=== PATIENT | male | born 1955 | race Caucasian/White ===

== ENCOUNTER 2023-07-19 18:18 | Emergency (ER) | payer MEDICARE, SELFPAY ==
[2023-07-19 18:28] VITALS: BP 208/103; PULSE 73; RESP 18; TEMP 36.8; O2SAT 100; BMI 20.7
--- NOTE | 2023-07-19 18:42 | DI.RAD.S_ITS ---
PROCEDURE: XR HIP W PEL IF DONE LT 2V INDICATIONS: L hip pain after trauma TECHNIQUE: 3 views of the hip were acquired. COMPARISON: None. FINDINGS: Bones: Severe left hip degenerative changes, with flattening of the femoral head. There may be a deformity in the subcapital region. Right hip arthroplasty. Lumbosacral degenerative changes. Soft tissues: No suspicious calcifications. There are vascular calcifications. IMPRESSION: Severe left hip degenerative changes. Possible deformity is seen in the subcapital region, age indeterminate. If there is high concern for occult injury, consider repeat radiography or cross-sectional imaging. Dictated by: Daljit Henry M.D. on 07/19/2023 at 19:28 Approved by: Daljit Henry M.D. on 07/19/2023 at 19:29
--- NOTE | 2023-07-19 19:38 | DI.CT.S_ITS ---
PROCEDURE: CT PEL WO CON INDICATIONS: L hip pain TECHNIQUE: Noncontrast 3 mm axial sections acquired through the bony pelvis, with coronal and sagittal reformatting. COMPARISON: [facility], CR, XR HIP W PEL IF DONE LT 2V, 07/19/2023, 18:57. FINDINGS: Image quality: Excellent. Bones: Severe osteoarthritic changes of the left hip with [id number] articulation, subchondral sclerosis and cystic changes. Flattening of the left femoral head. Osteophytosis. No acute fracture or dislocation is seen. Degenerative changes of the visualized lower lumbar spine and pubic symphysis. Right hip arthroplasty is noted. Diffusely decreased osseous mineralization. Soft tissues: Atherosclerotic vascular calcifications. Prostatomegaly. Diverticulosis within the visualized colon without evidence of acute diverticulitis. IMPRESSION: Severe osteoarthritic changes of the left hip. No acute fracture or dislocation. Dictated by: Cricket Lee M.D. on 07/19/2023 at 20:39 Approved by: Cricket Lee M.D. on 07/19/2023 at 20:42
--- NOTE | 2023-07-19 19:44 | ED_ITS ---
HPI - Extremity Injury (Lower) General Chief Complaint: Extremity Injury, Lower Stated Complaint: L hip pain Time Seen by Provider: 07/19/23 18:41 Source: patient and EMS Mode of arrival: EMS History of Present Illness HPI Narrative: 68-year-old male. Known arthritis in his left hip. He has had his right hip replaced for arthritis. He states that he was at his normal state of health. He was sitting in his chair talking on the phone. Was in the chair for an extended period of time. Went to stand up and had sudden intense pain in his left hip. Does not radiate down his leg. Not in his lower back. No specific trauma. He did not fall. He did receive fentanyl by EMS prior to arrival. Initially he thought that this was not helping any of his symptoms but by the time I evaluated him he thought that he was feeling somewhat better. Related Data Allergies Allergy/AdvReac Type Severity Reaction Status Date / Time No Known Drug Allergies Allergy Verified 07/19/23 18:28 Review of Systems Constitutional Constitutional: Reports system reviewed and no additional complaints, except as documented Musculoskeletal Musculoskeletal: Reports system reviewed and no additional complaints, except as documented Integumentary/Breasts Skin/Breast: Reports system reviewed and no additional complaints, except as documented Neurologic Neurologic: Reports system reviewed and no additional complaints, except as documented Patient History Social History Smoking Status: Current every day smoker Smoking Status: Current every day smoker tobacco type: cigarettes alcohol intake frequency: 3 or more drinks per day Alcohol type: wine Substance Use Type: does not use Exam Initial Vital Signs Initial Vital Signs: Vital Signs Temperature 98.2 F 07/19/23 18:28 Pulse Rate 73 07/19/23 18:28 Respiratory Rate 18 07/19/23 18:28 Blood Pressure 208/103 H 07/19/23 18:28 Pulse Oximetry 100 07/19/23 18:28 Oxygen Delivery Method Room Air 07/19/23 18:28 Const General: cooperative and comfortable Resp Effort & Inspection: normal respiratory effort Cardio Rate: regular rate Extrem Other: No gross deformities Course Orders Ordered: ED Orders 07/19/23 18:42 XR hip w pel if done LT 2V Stat 07/19/23 19:38 CT pelvis wo con Stat Discontinued Medications Hydromorphone HCl (Hydromorphone 1 Mg Inj) 1 mg IV NOW ONE Stop: 07/19/23 18:43 Last Admin: 07/19/23 21:16 Dose: Not Given Documented By: KLS Vital Signs Vital signs: Vital Signs - 8 hr 07/19/23 18:28 Temperature 98.2 F Pulse Rate 73 Respiratory Rate 18 Blood Pressure 208/103 H Pulse Oximetry 100 Oxygen Delivery Method Room Air MDM - Extremity Injury (Lower) Imaging Data Extremity x-ray #1: Radiologist's Impression: PROCEDURE: XR HIP W PEL IF DONE LT 2V INDICATIONS: L hip pain after trauma TECHNIQUE: 3 views of the hip were acquired. COMPARISON: None. FINDINGS: Bones: Severe left hip degenerative changes, with flattening of the femoral head. There may be a deformity in the subcapital region. Right hip arthroplasty. Lumbosacral degenerative changes. Soft tissues: No suspicious calcifications. There are vascular calcifications. IMPRESSION: Severe left hip degenerative changes. Possible deformity is seen in the subcapital region, age indeterminate. If there is high concern for occult injury, consider repeat radiography or cross-sectional imaging. CT pelvis: Radiologist's Impression: PROCEDURE: CT PEL WO CON INDICATIONS: L hip pain TECHNIQUE: Noncontrast 3 mm axial sections acquired through the bony pelvis, with coronal and sagittal reformatting. COMPARISON: [facility], , XR HIP W PEL IF DONE LT 2V, 07/19/2023, 18:57. FINDINGS: Image quality: Excellent. Bones: Severe osteoarthritic changes of the left hip with [id number] articulation, subchondral sclerosis and cystic changes. Flattening of the left femoral head. Osteophytosis. No acute fracture or dislocation is seen. Degenerative changes of the visualized lower lumbar spine and pubic symphysis. Right hip arthroplasty is noted. Diffusely decreased osseous mineralization. Soft tissues: Atherosclerotic vascular calcifications. Prostatomegaly. Diverticulosis within the visualized colon without evidence of acute diverticulitis. IMPRESSION: Severe osteoarthritic changes of the left hip. No acute fracture or dislocation. [facility] Narrative Medical decision making narrative: Patient was able to stand. Initial x-ray shows no overt fractures but there was some compression of the femoral head. Unsure whether not this is new or old. CT scan does not show any acute fractures. Discussed this with the patient. Will send patient home with instructions to continue to take his Tylenol and Advil. Advised that he talk with his primary doctor/orthopedic surgeon about further evaluation and treatment. He was given return precautions. Discharge Plan Departure Patient Disposition: Home Clinical Impression: Hip arthritis Instructions: DI for Arthritis Activity Restrictions/Additional Instructions: The x-rays and CT scan did not show any signs of fractures. You can continue to take Aleve and add Tylenol to this if needed. Contact your primary care doctor for a follow-up. Return to the emergency department for new symptoms. Stand Alone Forms: Patient Portal/API
== END 2023-07-19 21:18 | disposition home or self-care (01) ==
PROVIDERS: Emergency Provider Emergency Medicine
DX: M16.12 Unilateral primary osteoarthritis, left hip (principal)
CPT/HCPCS: 72192; 73502; 99284

== ENCOUNTER 2025-03-04 16:13 | Observation (INO) | payer MEDICARE, SELFPAY ==
[2025-03-04] VITALS (21 sets, daily range): BP systolic 95–120; BP diastolic 52–59; PULSE 71–80; RESP 14–20; O2SAT 96–100; BMI 21.2
--- NOTE | 2025-03-04 16:32 | EKG_ITS ---
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
--- NOTE | 2025-03-04 16:51 | DI.CT.S_ITS ---
PROCEDURE: CT ANGIO ABD/PEL GI BLEED INDICATIONS: gi bleed TECHNIQUE: After the administration of intravenous contrast, 2.5 mm sections acquired from the diaphragm to the iliac crests. 10 mm maximum intensity projection (MIP) coronal and sagittal reformats were then performed. For radiation dose reduction, the following was used: automated exposure control. COMPARISON: None. FINDINGS: Image quality: Diagnostic. Lower chest: Small bilateral pleural effusions and mild bilateral basilar compressive atelectasis ABDOMEN: Liver: No solid mass. Gallbladder: No radiopaque gallstones or wall thickening. Biliary ducts: No biliary dilation. Pancreas: Extensive calcifications as well as severe volume loss, due to chronic pancreatitis. Spleen: Size is within normal limits. Adrenal Glands: No adrenal nodules. Kidneys and Ureters: No hydronephrosis. No solid mass. No complex renal cystic lesion which requires follow up. Stomach and Bowel: There is no bowel dilatation. There is moderate wall thickening of the colon, especially in the right colon, with significant mucosal enhancement. No definite areas of abnormal contrast accumulation Peritoneum: No abnormal intraperitoneal fluid. No free air. Ventral Wall: No hernia. Abdominal Nodes: No retroperitoneal or mesenteric adenopathy by size criteria. Vessels: Aorta, as above. Normal IVC. PELVIS: Pelvic Organs: Unremarkable. Bladder: Unremarkable. Pelvic Nodes: No enlarged lymph nodes. Miscellaneous: No inguinal hernias are seen. Bones: Severe left hip osteoarthritis, with large complex joint effusion. IMPRESSION: 1. Findings most suggestive of pancolitis, involving especially the right colon, most likely of inflammatory/infectious etiology. No signs of complications. 2. The intense mucosal enhancement limits evaluation for small amount of intraluminal contrast accumulation. No definite signs of active GI bleeding. Especially in this context, better assessment can be performed with GI bleeding scintigraphy. Dictated by: Jori Schmitt M.D. on 03/04/2025 at 17:30 Approved by: Jori Schmitt M.D. on 03/04/2025 at 17:37
[2025-03-04] MEDS: ONDANSETRON 4 MG/2 ML INJ IV (16:53)
[2025-03-04 16:55] LABS: Add Manual Diff / Slide Review NO; Hematocrit 31.9 % (41-53); Hemoglobin 10.7 g/dL (13.5-17.5); Lymphocytes Absolute Auto 2200 /uL (1100-4500); Mean Corpuscular HGB Conc 33.5 % (30-36); Mean Corpuscular Hemoglobin 32.6 PG (26-34); Mean Corpuscular Volume 97.3 fL (80-100); Platelet Count 485 X10^3/uL (150-400)
[2025-03-04 17:17] LABS: Alanine Aminotransferase 17 IU/L (<50); Albumin 2.3 g/dL (3.5-5.0); Albumin Globulin Ratio 0.8 (1.0-2.8); Alkaline Phosphatase 71 U/L (38-126); Blood Urea Nitrogen 14 mg/dL (9-20); Calcium 7.7 mg/dL (8.4-10.2); Carbon Dioxide 29 mmol/L (22-32); Chloride 102 mmol/L (98-107); Estimated Glomerular Filt Rate > 60 mL/min (>60); Globulin 3.0 g/dL (1.7-4.1); Glucose 117 mg/dL (70-99); HEMOLYSIS 18 (0-50); Potassium 4.1 mmol/L (3.4-5.1); Sodium 133 mmol/L (137-145); Total Protein 5.3 g/dL (6.3-8.2)
[2025-03-04 17:19] LABS: INR 2.4 (0.9-1.3); Prothrombin Time 26.8 SECONDS (9.4-12.5)
[2025-03-04 17:21] LABS: PTT Partial Thromboplastin Tim 34 SECONDS (25.1-36.5)
[2025-03-04] MEDS: PIPERACILLIN/TAZO 4.5 GM in SODIUM CHLORIDE 0.9% 100 ML IV (18:15)
[2025-03-04] MEDS: LACTATED RINGERS 1,000 ML 1000 ML IV (18:15)
[2025-03-04] MEDS: PANTOPRAZOLE 40 MG VIAL IV (18:15)
--- NOTE | 2025-03-04 18:31 | ED.GIBLEED ---
HPI - GI Bleed General Chief complaint: GI Bleed Stated complaint: blood in stool , nausea Time Seen by Provider: 03/04/25 16:51 Source: patient and family Mode of arrival: Ambulatory History of Present Illness HPI Narrative: 69-year-old male who was recently admitted and discharged over at [facility] for a GI bleed. He was discharged yesterday but today had 2 episodes of fairly large bright red GI bleeds. Patient is on Eliquis for atrial fibrillation and is pending a bypass surgery. Patient was restarted on his Eliquis 3 days ago and has taken his morning dose today. He denies any pain nausea or any other symptoms at this time. He did require 1 unit of packed RBCs while he was admitted over at [facility]. Related Data Home Medications ?Medication ?Instructions ?Recorded ?Confirmed losartan 50 mg tablet 50 mg PO DAILY 01/13/25 01/13/25 mupirocin topical 01/13/25 01/13/25 naproxen sodium [Aleve] PO 01/13/25 01/13/25 triamcinolone acetonide 0.1 % applic topical BID PRN 01/13/25 01/13/25 topical cream Previous Rx's ?Medication ?Instructions ?Recorded prednisone 20 mg tablet 20 mg PO DAILY #5 tabs 01/13/25 Allergies Allergy/AdvReac Type Severity Reaction Status Date / Time No Known Drug Allergies Allergy Verified 01/13/25 09:20 Review of Systems Review of Systems ROS Unobtainable: All systems reviewed & are unremarkable except as noted in HPI and below Patient History Social History Smoking Status: Former smoker alcohol intake: current tobacco type: cigarettes alcohol intake frequency: 3 or more drinks per day Alcohol type: wine Exam Narrative Exam Narrative: General: Patient appears to be in no acute distress, acting appropriately , pale looking Head: normocephalic, atraumatic, HEENT: Pupils equal round reactive, eyes tracking well, neck supple, no JVD Heart: regular rate and rhythm, no murmurs, rubs, or gallops heard Lungs: clear to auscultation, no adventitious sounds Abdomen: soft , nontender, nondistended, positive bowel sounds Neurological: no focal neurological signs, moving all extremities well, alert and oriented x3, Psych: good judgment ,good insight, mood is normal. Initial Vital Signs Initial Vital Signs: Vital Signs Pulse Rate 75 03/04/25 17:39 Respiratory Rate 16 03/04/25 17:39 Pulse Oximetry 96 03/04/25 17:39 Course Orders Ordered: ED Orders 03/05/25 01:20 Hemoglobin and Hematocrit Stat Sodium Chloride (Normal Saline 0.9%) 1,000 mls @ 125 mls/hr IV CONT JOVI Last Admin: 03/05/25 02:46 Dose: 125 mls/hr Documented By: ODDIE Ondansetron HCl (Ondansetron 4 Mg/2 Ml Inj) 4 mg IV NOW PRN PRN Reason: Nausea And Vomiting Last Admin: 03/04/25 16:53 Dose: 4 mg Documented By: ISELA Ondansetron HCl (Ondansetron 4 Mg Odt) 4 mg PO NOW PRN PRN Reason: Nausea And Vomiting Ondansetron HCl (Ondansetron 4 Mg/2 Ml Inj) 4 mg IV Q4HR PRN PRN Reason: Nausea And Vomiting Discontinued Medications Piperacillin Sod/Tazobactam (Sod 4.5 gm/ Sodium Chloride) 100 mls @ 200 mls/hr IV NOW ONE Stop: 03/04/25 17:52 Last Infusion: 03/04/25 19:13 Dose: Infused Documented By: Admin: 03/04/25 18:15 Dose: 200 mls/hr Documented By: ISELA Lactated Ringer's (Lactated Ringers) 1,000 mls @ 1,000 mls/hr IV BOLUS ONE Stop: 03/04/25 18:57 Last Infusion: 03/04/25 21:02 Dose: Infused Documented By: Admin: 03/04/25 18:15 Dose: 1,000 mls/hr Documented By: ISELA Lactated Ringer's (Lactated Ringers) 1,000 mls @ 125 mls/hr IV CONT JOVI Last Infusion: 03/05/25 02:47 Dose: Infused Documented By: Infusion: 03/05/25 02:46 Dose: 0 mls/hr Documented By: Admin: 03/05/25 02:28 Dose: 125 mls/hr Documented By: DODIE Pantoprazole Sodium (Pantoprazole 40 Mg Vial) 40 mg IV NOW ONE Stop: 03/04/25 17:59 Last Admin: 03/04/25 18:15 Dose: 40 mg Documented By: ISELA Polyethylene Glycol/Electrolytes ([id number]/Sod Sulf,Bicarb,Cl/Kcl 4,000 Ml Solution) 2,000 ml PO NOW ONE Stop: 03/05/25 02:40 Last Admin: 03/05/25 03:04 Dose: 2,000 ml Documented By: NATACHA Reevaluation(s) Reevaluation #1: Upon re-evaluation, patient had 4 bowel movements that were non bloody here in the ER. Patient remains hemodynamically stable. Consultations Consultation #1: Dr warren general surgery graciously will take the patient for a colonoscopy in am, boarding orders placed and will start prep Vital Signs Vital signs: Vital Signs - 8 hr 03/04/25 23:30 03/04/25 23:30 03/05/25 00:00 Pulse Rate 72 81 Respiratory Rate 15 15 Blood Pressure 98/52 L Pulse Oximetry 97 99 Oxygen Delivery Method Room Air Room Air 03/05/25 00:30 03/05/25 00:30 03/05/25 01:00 Pulse Rate 74 Respiratory Rate 16 Blood Pressure 104/56 L 98/57 L Pulse Oximetry 96 Oxygen Delivery Method Room Air 03/05/25 01:00 03/05/25 01:30 03/05/25 01:30 Pulse Rate 73 77 Respiratory Rate 13 16 Blood Pressure 112/56 L Pulse Oximetry 96 97 Oxygen Delivery Method Room Air 03/05/25 02:00 03/05/25 02:00 03/05/25 02:30 Pulse Rate 77 Respiratory Rate 23 Blood Pressure 112/58 L 119/59 L Pulse Oximetry 96 Oxygen Delivery Method 03/05/25 02:30 Pulse Rate 78 Respiratory Rate 16 Blood Pressure Pulse Oximetry 99 Oxygen Delivery Method MDM - GI Bleed Lab Data 03/05/25 01:20 03/04/25 16:44 Labs: Lab Results 03/04/25 03/04/25 03/05/25 Range/Units 16:44 18:15 01:20 WBC 17.7 H (4.5-11.0) X10^3/uL RBC 3.28 L (4.5-5.9) X10^6/uL Hgb 10.7 L 8.8 L (13.5-17.5) g/dL Hct 31.9 L 26.1 L (41-53) % MCV 97.3 (80-100) fL MCH 32.6 (26-34) PG MCHC 33.5 (30-36) % RDW 13.3 (11.6-14.8) % Plt Count 485 H (150-400) X10^3/uL Neut % (Auto) 70.8 (50-75) % Lymph % (Auto) 12.6 L (25-40) % [place] % (Auto) 12.3 (3-14) % Eos % (Auto) 3.4 (2-4) % Baso % (Auto) 0.9 (0-2) % Neut # (Auto) 41317 H (5299-7671) /uL Lymph # (Auto) 2200 (9329-9702) /uL [place] # (Auto) 2200 H (0-900) /uL Eos # (Auto) 600 H (0-450) /uL Baso # (Auto) 200 H (0-100) /uL PT 26.8 H (9.4-12.5) SECONDS INR 2.4 H (0.9-1.3) APTT 34 (25.1-36.5) SECONDS Sodium 133 L (137-145) mmol/L Potassium 4.1 (3.4-5.1) mmol/L Chloride 102 (98-107) mmol/L Carbon Dioxide 29 (22-32) mmol/L BUN 14 (9-20) mg/dL Creatinine 1.13 (0.66-1.25) mg/dL Estimated GFR > 60 (>60) mL/min BUN/Creatinine Ratio 12.4 (6-22) Glucose 117 H (70-99) mg/dL Lactate 1.5 (0.7-2.1) mmol/L Calcium 7.7 L (8.4-10.2) mg/dL Total Bilirubin 0.3 (0.2-1.3) mg/dL AST 29 (17-59) IU/L ALT 17 (<50) IU/L Alkaline Phosphatase 71 (38-126) U/L Total Protein 5.3 L (6.3-8.2) g/dL Albumin 2.3 L (3.5-5.0) g/dL Globulin 3.0 (1.7-4.1) g/dL Albumin/Globulin Ratio 0.8 L (1.0-2.8) Blood Type O Negative Antibody Screen Negative Urine Dip Bedside Urine Glucose Negative Bedside Urine Bilirubin - Negative Bedside Urine Ketone - Negative Urine Specific [place] 1.015 Bedside Urine Occult Blood - Negative Bedside Urine pH 5.5 Bedside Urine Protein +/- 15 Bedside Urine Urobilinogen - Negative Bedside Urine Nitrite - Negative Bedside Urine Leukocytes - Negative Esterase MDM Narrative Medical decision making narrative: 69-year-old male who has recently admitted for several days for a GI bleed overhead [facility]. Patient is also pending a coronary artery bypass graft surgery that was pending due to this GI bleed. The GI bleeds etiology is most likely the patient's blood thinner Eliquis which he is on for atrial fibrillation. Initially the patient's blood thinner was suspended but restarted before he was discharged. Day after discharge. Patient had large bright red blood per rectum. Patient has been stable here in the ER. General surgery was consulted and will take the patient for a colonoscopy in a.m.. Discharge Plan Departure Patient Disposition: Admitted as Observation Clinical Impression: Lower gastrointestinal hemorrhage Admit Date/Time: 03/05/25 02:30 Admit Provider: Leopoldo Warren
[2025-03-04 18:48] LABS: Lactate (Lactic Acid) 1.5 mmol/L (0.7-2.1)
[2025-03-05] VITALS (30 sets, daily range): BP systolic 98–135; BP diastolic 54–74; PULSE 73–93; RESP 13–26; TEMP 36.2–36.4; O2SAT 96–198; BMI 21.2
--- NOTE | 2025-03-05 | PATH_ITS ---
[facility] Accession Number: [id number] No. of containers..01 Tissue . 01 Material submitted: . colon - COLON, RANDOM . 01 Clinical history: . FOR COLITIS . 01 Diagnosis: COLON, RANDOM BIOPSY: Colonic mucosa with architectural distortion and mild to moderate active inflammation, see comment. Negative for dysplasia and malignancy. MRV 03/14/2025 1546 Local . 01 Comment: The morphologic characteristics seen would be compatible with inflammatory bowel disease in the appropriate clinical context. Additional differential diagnoses include infection and drug-related injury (such as NSAIDs and ARBs, among others). Acute ischemic changes are not seen but should remain in the differential diagnosis in the appropriate clinical scenario. . 01 Electronically signed: . Danay Adam DO, Pathologist NPI- [id number] . 01 Gross description: . Received one formalin-filled container, labeled with the patient's name, labeled random colon are multiple fragments of parr, soft tissue which range in size from less than 0.1 to 0.4 x 0.3 x 0.2 cm. The specimen is totally submitted in one cassette. ([facility]:[id number]) /MRV 03/13/2025 0328 Local . 01 Pathologist provided ICD-10: K92.9 . 01 CPT . 075387 Specimen Comment: A courtesy copy of this report has been sent to [facility] Pathology Performed at: [address] [address], [place], [place] [id number] MD Ga Huynh MD Phone: [phone]
[2025-03-05 01:46] LABS: Hematocrit 26.1 % (41-53); Hemoglobin 8.8 g/dL (13.5-17.5)
[2025-03-05] MEDS: LACTATED RINGERS 1,000 ML 125 ML IV (02:28)
[2025-03-05] MEDS: SODIUM CHLORIDE 0.9% 1,000 ML 125 ML IV ×3 (02:46→22:06)
[2025-03-05] MEDS: PEG3350/SOD SULF,BICARB,CL/KCL 4,000 ML SOLUTION 2000 ML PO (03:04)
--- NOTE | 2025-03-05 07:22 | P.HP_ITS ---
History of Present Illness History of Present Illness Date Patient Seen: 03/05/25 Time Patient Seen: 07:22 Chief complaint: blood in stool , nausea Narrative: 69yo M with BRBPR. Recent admission at [facility] in [place]. EGD done per patient, normal. CTA demonstrated colitis. Had 2 u PRBCs, hgb drifted to 8.9. Hemodynamically stable. Takes Eliquis for afib. Last dose on Wednesday. He completed Golytely last night. Will reverse with Kcentra. Last colonoscopy done 5 years ago. He describes a large polyp removed and tattooed. He was told to return in 1 year, but he hasn't had that f/u scope done. [facility] Social History Smoking Status: Former smoker alcohol intake: current Meds Home Medications and Allergies Home Medications ?Medication ?Instructions ?Recorded ?Confirmed ?Type losartan 50 mg tablet 50 mg PO DAILY 01/13/25/08/15 History mupirocin topical 01/13/25 01/13/25 Hi story naproxen sodium [Aleve] PO 01/13/25 01/13/25 History prednisone 20 mg tablet 20 mg PO DAILY #5 tabs 01/1301/13/25 Rx triamcinolone acetonide 0.1 % applic topical BID PRN 0 01/13/25 01/13/25 History topical cream Allergies Allergy/AdvReac Type Severity Reaction Status Date / Time No Known Drug Allergies Allergy Verified 01/13/25 09:20 Exam Vital Signs (past 8 hours): - 03/04/25 23:30 03/04/25 23:30 03/05/25 00:00 Pulse Rate 72 81 Respiratory Rate 15 15 Blood Pressure 98/52 L Pulse Oximetry 97 99 Oxygen Delivery Method Room Air Room Air 03/05/25 00:30 03/05/25 00:30 03/05/25 01:00 Pulse Rate 74 Respiratory Rate 16 Blood Pressure 104/56 L 98/57 L Pulse Oximetry 96 Oxygen Delivery Method Room Air 03/05/25 01:00 03/05/25 01:30 03/05/25 01:30 Pulse Rate 73 77 Respiratory Rate 13 16 Blood Pressure 112/56 L Pulse Oximetry 96 97 Oxygen Delivery Method Room Air 03/05/25 02:00 03/05/25 02:00 03/05/25 02:30 Pulse Rate 77 Respiratory Rate 23 Blood Pressure 112/58 L 119/59 L Pulse Oximetry 96 Oxygen Delivery Method 03/05/25 02:30 03/05/25 03:00 03/05/25 03:00 Pulse Rate 78 82 Respiratory Rate 16 17 Blood Pressure 113/62 Pulse Oximetry 99 98 Oxygen Delivery Method Oxygen Delivery Method Room Air Narrative Exam Narrative: Const General: healthy appearing, comfortable and no acute distress Orientation: alert and oriented x3 HENMT Ears: hearing grossly normal bilaterally Eyes Visual [place]: normal visual duvall by confrontation Conjunctivae: conjunctivae normal Sclera: sclerae normal EOM: EOM intact bilaterally Resp Effort & Inspection: normal respiratory effort and able to speak in complete sentences Cardio Rate: regular rate GI Palpation: soft (NT) Extrem General: no pedal edema and no calf tenderness Objective Labs 03/05/25 01:20 03/04/25 16:44 Labs: Laboratory Results - last 24 hr 03/04/25 03/04/25 03/05/25 16:44 18:15 01:20 WBC 17.7 H RBC 3.28 L Hgb 10.7 L 8.8 L Hct 31.9 L 26.1 L MCV 97.3 MCH 32.6 MCHC 33.5 RDW 13.3 Plt Count 485 H Neut % (Auto) 70.8 Lymph % (Auto) 12.6 L [place] % (Auto) 12.3 Eos % (Auto) 3.4 Baso % (Auto) 0.9 Neut # (Auto) 97351 H Lymph # (Auto) 2200 [place] # (Auto) 2200 H Eos # (Auto) 600 H Baso # (Auto) 200 H PT 26.8 H INR 2.4 H APTT 34 Sodium 133 L Potassium 4.1 Chloride 102 Carbon Dioxide 29 BUN 14 Creatinine 1.13 Estimated GFR > 60 BUN/Creatinine Ratio 12.4 Glucose 117 H Lactate 1.5 Calcium 7.7 L Total Bilirubin 0.3 AST 29 ALT 17 Alkaline Phosphatase 71 Total Protein 5.3 L Albumin 2.3 L Globulin 3.0 Albumin/Globulin Ratio 0.8 L Blood Type O Negative Antibody Screen Negative Assessment & Plan Assessment and plan (1) Lower gastrointestinal hemorrhage: Status: Acute Plan Plan admit to surgery Reverse eliquis with Kcentra Colonoscopy today, possible biopsy. The risks, benefits and options regarding the procedure were explained to the patient in detail. Risk discussion included but not limited to: bleeding, perforation, unable to reach cecum, missed lesion. The patient was encouraged to ask questions and they were answered to their satisfaction. The patient understands and is agreeable to proceed. Time-Based Coding :: [TOTAL MINUTES] spent with patient and on the chart (including review of chart, obtaining history, exam, reviewing outside data, placing orders, documenting exam and treatment plan, and counseling patient) on [DATE]. Quality VTE Deep Vein Thrombosis/Pulmonary Embolism Present on Admission: No IH PROFEE Patient Services Representative Document charge(s): Yes Charge Codes Initial inpatient/observation care: [id number]
[2025-03-05] MEDS: PROTHROMBIN CPLX(PCC)4FACT 2,000 UNIT in ISOOSMOTIC VEHICLE 0 ML 483.35 UNIT IV (07:59)
[2025-03-05 08:23] LABS: Hematocrit 28.3 % (41-53); Hemoglobin 9.4 g/dL (13.5-17.5)
--- NOTE | 2025-03-05 12:50 | CM.DANOTE ---
DCP Assessment Note: Pt is a 69yo male, resident of [place], is admitted for a GI bleed. Pt lives in a house with his partner, Kimberly. Pt's Primary Care Provider is Sumanth Loomis PA-C (Will establish care on 03/09) and insurance is [employer] Advantage. Reviewed chart and discussed with multidisciplinary team pt's medical status and initial discharge needs. Per ED Provider, pt to be admitted with General Surgery for colonoscopy scheduled for 1700 today. Per EMR, pt was admitted at [facility] from 02/07/25-02/10/25 for similar symptoms. DCP met w/patient at bedside; introduced self and role. Present in the room is pt's partner, Kimberly. Patient was found in bed, alert and oriented, cooperative with assessment. Pt confirmed living situation and good support in partner. Pt expressed preference in discharge home when cleared, preparing to discharge and stay in a motel overnight in [place] before returning to [place]. Pt has ano previous history of home health and SNF Rehab. Patient expressed a preference for a referral to [facility] in [place] with Dr. Theron Olivas MD; would request all clinicals to be sent to them but no official referral has been made by a Provider. . Plan: Anticipating discharge home with partner when medically cleared, pt partner to transport. CM team will follow closely for coordination of discharge plans. ROBYN Jimenez Discharge Planning/Care Management CM Discharge Assessment Start: 03/05/25 03:29 Freq: Status: Active Protocol: Document 03/05/25 12:01 MW (Rec: 03/05/25 12:48 MW [id number]) Discharge Planning Assessment Assigned Discharge VALE Wolf Histology Tech Provider Sumanth Loomis PA-C (Primary Care at [place]) Insurance [employer] Insurance Comment [employer] DPOA/Assigned Kimberly Boyce, Partner Designee Name Contact Information [phone] Advance Directives? Yes Advance Directives Yes on File History Provided By Patient Prior Living House Arrangements Type of Drives own vehicle transporation used prior to admit Independent with ADL Yes 's Is patient alert and Yes oriented? Caregiver for No Another Discharge Plan Home Transportation Partner, Kimberly Arrangement Review Status In Process Please Provide Date 03/05/25 Initial DC Assessment Was Performed Next Review Type Continued Stay Review
[2025-03-05] MEDS: LACTATED RINGERS 1,000 ML 42 ML IV (16:38)
--- NOTE | 2025-03-05 16:56 | PM.OP.COLON ---
Operative Date/Time/Diagnoses Date of procedure: 03/05/25 Time of procedure: 17:29 Pre-op diagnosis: Rectal bleeding Post-op diagnosis: other (Ulcerative colitis) Procedure & Clinicians Study performed: Colonoscopy with biopsy Same procedure(s) as scheduled: Yes Indications: 69yo M with rectal bleeding, EGD normal two days ago in [place]. Surgeon: Leopoldo Gillespie Anesthesia Type: MAC +/- Procedure Notes SCOAP/Timeout: Performed Procedure in detail: Colonoscopy Patient placed in left lateral recumbent position. Time out was performed. Procedural sedation was administered by anesthesia. Examination began with a thorough inspection of the perianal area. There was no evidence of fissures, fistulae, external hemorrhoids or cutaneous malignancy. The colonoscope was then placed into the rectum and the lumen was insufflated with carbon dioxide. The scope was carefully advanced forward. Ultimately the cecum was intubated and confirmed by identification of the ileocecal valve, the appendiceal orifice and the confluence of the taenia. The scope was then slowly withdrawn examining the colon thoroughly in all directions. In the rectum, retroflexion of the scope was performed for inspection of the distal rectum and anal canal. ?Significant colonoscopy findings: ?1. Quality of the preparation-good, [place] 2-3, improved with irrigation/suction ?2. Ulcerative colitis: severe pancolitis, edema, mucosal inflammation, ulcerations, mucous secretion, multiple random biposies taken (his states his mother had Crohn's disease) 3. No obvious polyp or mass Scope withdrawal time: 8 Findings: colitis (Ulcerative colitis) Specimen(s): other (multiple random biopsies) Complications: none Impression: Ulcerative colitis Begin treatment with mesalamine, sulfasalazine Observe overnight for symptom monitoring, begin treatment Post-procedure Recommendations: Will call with biopsy results Plan for aftercare: PACU then chandler Follow up: as needed Disposition: PACU
--- NOTE | 2025-03-05 19:00 | PC.NURSE ---
Late entry: Pt arrived to the floor at 12:42 today with 20 G IV in his L AC SL. Pt is full code, VSS, afebrile. The pt was oriented to the room and how to use the call light appropriately.
[2025-03-05] MEDS: ATORVASTATIN 20 MG TABLET 40 MG PO (22:05)
[2025-03-05] MEDS: MESALAMINE 400 MG CAP.DRTAB. 800 MG PO (22:05)
[2025-03-06 01:00] VITALS: BP 112/57; PULSE 86; RESP 18; TEMP 36.6; O2SAT 97
[2025-03-06] MEDS: SODIUM CHLORIDE 0.9% 1,000 ML 125 ML IV (05:54)
[2025-03-06] MEDS: METOPROLOL IR 50 MG TABLET PO (08:13)
[2025-03-06] MEDS: FUROSEMIDE 40 MG TABLET PO (08:13)
[2025-03-06] MEDS: LACTOBACILLUS ACIDOPHILUS TABLET 1 EACH PO (08:13)
[2025-03-06] MEDS: MESALAMINE 400 MG CAP.DRTAB. 800 MG PO ×2 (08:13→15:15)
[2025-03-06] MEDS: HYDROCORTISONE 100 MG/60 ML ENEMA PR (09:28)
--- NOTE | 2025-03-06 14:55 | P.DS_ITS ---
History of Present Illness History of Present Illness Date Patient Seen: 03/06/25 Time Patient Seen: 14:55 Chief complaint: blood in stool , nausea Narrative: 69yo M with BRBPR. Recent admission at [facility] in [place]. EGD done per patient, normal. CTA demonstrated colitis. Had 2 u PRBCs, hgb drifted to 8.9. Hemodynamically stable. Takes Eliquis for afib. Last dose on Wednesday. He completed Golytely last night. Will reverse with Kcentra. Last colonoscopy done 5 years ago. He describes a large polyp removed and tattooed. He was told to return in 1 year, but he hasn't had that f/u scope done. Discharge Providers Provider Date of admission: 03/05/25 02:30 Discharge Date: 03/06/25 Discharge provider: Leopoldo Gillespie MD Summary Hospital Course Discharge Diagnosis: Ulcerative colitis Hospital Course: Patient admitted with LGI bleeding. His eliquis was held and reversed to facilitate urgent colonoscopy. Colonoscopy performed last evening demonstrating clinical ulcerative colitis. Biopsies taken for confirmation. Treatment initiated. This morning, he was tolerating regular diet and was ready for discharge. He already has an appointment with his insurance auditor for ongoing management of ulcerative colitis. Status at Discharge Cognitive/behavioral status at discharge: oriented Functional status at discharge: independent ambulation Overall status at discharge: patient is back to baseline Time Spent with Patient Time spent: Greater than 30 minutes Exam Vital Signs (past 8 hours): Oxygen Delivery Method Room Air Oxygen Flow Rate 0 Narrative Exam Narrative: Const General: healthy appearing, comfortable and no acute distress Orientation: alert and oriented x3 HENMT Ears: hearing grossly normal bilaterally Eyes Visual Duvall: normal visual duvall by confrontation Conjunctivae: conjunctivae normal Sclera: sclerae normal EOM: EOM intact bilaterally Resp Effort & Inspection: normal respiratory effort and able to speak in complete sentences Cardio Rate: irregular rate GI Palpation: soft (NT) Extrem General: no pedal edema and no calf tenderness Objective Labs 03/05/25 08:16 03/04/25 16:44 [facility] Social History Smoking Status: Former smoker alcohol intake: current Discharge Assessment & Plan Assessment and Plan Assessment: Lower GI bleeding due to ulcerative colitis Plan of Treatment: Mesalamine therapy initiated He has appointment with GI next week for ongoing management Discharge Plan Discharge Plan Patient Disposition: Home Provider Discharge Comment: I prescribed the ulcerative colitis medication (mesalamine) to your pharmacy. Continue to take this for now and follow up with your insurance auditor. Great job already having an appointment. I would not start any anticoagulant medication for now as your colon will bleed. Discuss with your doctors as necessary to plan around your colitis. Discharge orders & Medications Prescriptions: New metoprolol tartrate 50 mg Tablet 50 mg PO DAILY Qty: 30 0RF mesalamine 400 mg Capsule (With Del Rel Tablets) 800 mg PO TID Qty: 90 0RF atorvastatin 20 mg Tablet 40 mg PO BEDTIME Qty: 30 0RF Continued furosemide 40 mg tablet 40 mg PO DAILY atorvastatin 40 mg tablet 40 mg PO BEDTIME metoprolol succinate 50 mg tablet extended release 24 hr 50 mg PO DAILY Discontinued metronidazole 500 mg tablet 500 mg PO TID ciprofloxacin HCl 500 mg tablet 500 mg PO BID Diet/Activity/Treatments Diet: Diet as Tolerated Skin/Wound/Dressing Care Report to your healthcare provider any signs of infection, such as:: chills, fever, night sweats and increased pain Visit Report/Discharge Packet Stand Alone Forms: Patient Portal/API, Stroke Signs & Symptoms Discharge Data Attending Provider: Leopoldo Gillespie Admit Date/Time: 03/05/25 02:30 Quality VTE Deep Vein Thrombosis/Pulmonary Embolism Present on Admission: No IH PROFEE Charge Codes Discharge inpatient/observation: 86146
== END 2025-03-06 15:35 | disposition home or self-care (01) ==
LOC: ED 22:45 → AC 03-05 02:31
PROVIDERS: Family Medicine; Admitting Provider Surgery; Emergency Provider Surgery; Referring Provider Family Medicine; Visit Provider Surgery
PROC: 0DJD8ZZ Inspection of Lower Intestinal Tract, Via Natural or Artificial Opening Endoscopic (ICD-10-PCS; CPT 45378; principal; 2025-03-05 12:00)
DX: K51.90 Ulcerative colitis, unspecified, without complications (principal); R11.0 Nausea; I48.91 Unspecified atrial fibrillation; Z87.891 Personal history of nicotine dependence; Z79.01 Long term (current) use of anticoagulants; Z86.0100 Personal history of colon polyps, unspecified
CPT/HCPCS: 45380; 36415; 74174; 80053; 81003; 83605; 85014; 85018; 85025; 85610; 85730; 86850; 86900; 86901; 87040; 93005; 93010; 96361; 96365; 96367; 96375; 99284; G0378; J2250; J2405; J2470; J2543; J2704; J7030; J7050; J7120; J7168; Q9967